=== PATIENT | male | born 1995 | race Caucasian/White ===

== ENCOUNTER 2017-10-28 17:03 | Emergency (ER) | payer OTHER ==
[2017-10-28 17:18] LABS: BASOPHIL (%) 0.8 % (0-1); BASOPHIL COUNT 0.1 K/uL (0-0.1); EOSINOPHIL (%) 4.3 % (0-5); EOSINOPHIL COUNT 0.5 K/uL (0-0.3); HEMATOCRIT 41.9 % (38.0-50.0); HEMOGLOBIN 13.7 G/DL (12.5-16.6); IMMATURE GRANULOCYTE (%) 0.5 % (0.0-0.7); LYMPHOCYTE COUNT 4.4 K/uL (1.0-2.8); MCH 27.2 PG (29.0-34.0); MCHC 32.7 G/DL (30.0-36.0); MCV 83.3 FL (86-99); MONOCYTE (%) 8.4 % (3-12); NEUTROPHIL COUNT 5.5 K/uL (1.8-6.4); PLATELET COUNT 553 K/uL (156-360); RBC DIS.WIDTH-CV 12.6 % (11.8-14.6); RED BLOOD COUNT 5.03 M/uL (4.00-5.50); WHITE BLOOD COUNT 11.5 K/uL (4.1-10.2)
[2017-10-28 17:30] LABS: AMYLASE 42 IU/L (1-118); CHLORIDE 101 mEq/L (99-109); POTASSIUM 3.4 mEq/L (3.7-5.4); SODIUM 139 mEq/L (136-147)
[2017-10-28 17:32] LABS: GLUCOSE 115 mg/dL (70-99)
[2017-10-28 17:35] LABS: SERUM ETHYL ALCOHOL < 10 mg/dL
[2017-10-28 17:36] LABS: GFR ESTIMATE (CALCULATED) > 59 mL/min/ (58.99-99999); UREA NITROGEN (BUN) 17 mg/dL (9-23)
[2017-10-28 17:39] LABS: LIPASE 9 U/L (1.0-51.0)
== END 2017-10-28 19:47 | disposition short-term general hospital (02) ==
LOC: TRA 17:03
PROVIDERS: Emergency Medicine
PROC: 3E0234Z Introduction of Serum, Toxoid and Vaccine into Muscle, Percutaneous Approach (ICD-10-PCS; principal; 2017-10-28)
DX: S82.252B Displaced comminuted fracture of shaft of left tibia, initial encounter for open fracture type I or II (principal); S82.452B Displaced comminuted fracture of shaft of left fibula, initial encounter for open fracture type I or II; V23.4XXA Motorcycle driver injured in collision with car, pick-up truck or van in traffic accident, initial encounter; Y92.410 Unspecified street and highway as the place of occurrence of the external cause; Z23 Encounter for immunization; F41.9 Anxiety disorder, unspecified
CPT/HCPCS: 70450; 71260; 72125; 72129; 72132; 73590; 74177; 80048; 81003; 82150; 83690; 85025; 86850; 86900; 86901; 99281; 99285; G0480; J0690; J1170; J2405